=== PATIENT | female | born 1965 | race Caucasian/White ===

== ENCOUNTER → 2020-05-30 | Outpatient (CLI) | payer OTHER ==
--- NOTE | 2020-05-30 09:23 | Diagnostic Imaging Report ---
EXAM: Right upper quadrant abdominal ultrasound INDICATION: Right upper quadrant pain COMPARISON: None. TECHNIQUE: Transverse and longitudinal images of the right upper quadrant abdomen were obtained FINDINGS: Liver: Size: 14.8 cm in the right midclavicular line, normal Appearance: Increased echogenicity, smooth contour Mass: No focal masses Gallbladder: No gallbladder distension, pericholecystic fluid, wall thickening, stone, or reported sonographic Hunter's sign. Gallbladder wall measures 2 mm. Bile Ducts: Intrahepatic Ducts: No dilatation Extrahepatic Ducts: Common bile duct measures 3 mm Pancreas: Visualized portions of the pancreatic head, neck and proximal body are normal. Kidney: The right kidney measures 11.2 cm without evidence of hydronephrosis or stone. Vessels: Aorta: Visualized portions are normal Inferior Vena Cava: Visualized portions are normal Main Portal Vein: 1.1 cm, normal size with hepatopetal flow. Free Fluid: No ascites or pleural effusion IMPRESSION: No cholelithiasis or sonographic evidence of cholecystitis. Hepatic steatosis. Signed by: Estefany Alcantar MD on 05/30/2020 9:20 AM
--- NOTE | 2020-05-30 17:16 | Diagnostic Imaging Report ---
Hepatobiliary Scan with Gallbladder Ejection Fraction Reason for exam: RUQ pain Technique: Following intravenous administration of 6.6 millicuries of Tc-[id number] mebrofenin, dynamic images of the abdomen in the anterior projection were obtained through 30 minutes. Sincalide (CCK analog) 2.0 micrograms was administered intravenously over 30 minutes with additional imaging for determination of gallbladder ejection fraction. Discussion: Perfusion of the liver is normal. Extraction of tracer by the liver parenchyma is normal. Tracer appears promptly within the biliary tract. The gallbladder begins to fill by 10 minutes post injection of tracer and fills adequately. Tracer is seen in the small bowel during the sincalide infusion. The gallbladder ejection fraction with sincalide is 9% (normal greater than 40%). Impression: 1. Filling of the gallbladder excludes acute cystic duct obstruction/acute cholecystitis. 2. The decreased gallbladder ejection fraction of 9% supports the clinical diagnosis of chronic cholecystitis/gallbladder dyskinesia. Signed by: Dr. Aletha Vargas M.D. on 05/30/2020 5:13 PM
== END ==
LOC: US 08:17
PROVIDERS: ATTEND Internal Medicine Gastroenterology
DX: R10.11 Right upper quadrant pain (principal)
CPT/HCPCS: 76705; 78227; A9537

== ENCOUNTER → 2020-06-30 | Day surgery (SDC) | payer OTHER ==
[2020-06-27 09:08] LABS: BASOPHILS % 0.6 % (0.0-1.0); EOSINOPHILS # (AUTO) 0.1 (0.0-0.4); EOSINOPHILS % 2.3 % (0.0-6.0); HEMATOCRIT 39.5 % (34.2-44.1); HEMOGLOBIN 12.4 g/dL (12.0-16.0); LYMPHOCYTES % 37.1 % (18.0-39.1); MEAN CORPUSCULAR HGB CONC 31.4 g/dL (31-35); MEAN CORPUSCULAR VOLUME 92.5 fL (81-99); MONOCYTES # (AUTO) 0.4 (0.2-0.8); MONOCYTES % 6.8 % (4.4-11.3); NEUTROPHILS # (AUTO) 2.8 (2.1-6.9); PLATELET COUNT 187 x10e3/uL (140-360); RED BLOOD COUNT 4.27 x10e6/uL (3.6-5.1); RED CELL DISTRIBUTION WIDTH 13.1 % (11.7-14.4)
[2020-06-27 09:28] LABS: ALANINE AMINOTRANSFERASE 14 IU/L (0-55); ALBUMIN 3.9 g/dL (3.5-5.0); ALBUMIN/GLOBULIN RATIO 1.2 (0.8-2.0); ALKALINE PHOSPHATASE 57 IU/L (40-150); ANION GAP 13.4 mmol/L (8-16); BLOOD UREA NITROGEN 9 mg/dL (7-26); BUN/CREATININE RATIO 12 (6-25); CALCIUM 9.1 mg/dL (8.4-10.2); CARBON DIOXIDE 27 mmol/L (22-29); CHLORIDE 107 mmol/L (98-107); CREATININE, SERUM 0.75 mg/dL (0.57-1.11); EST GLOMERULAR FILTRATION RATE > 60 ML/MIN (60-); GLUCOSE 83 mg/dL (74-118); POTASSIUM 4.4 mmol/L (3.5-5.1); SODIUM 143 mmol/L (136-145)
[~2020-06-30] MED LIST: BUPIVACAINE 0.25% 30ML SDV INJ ONE; DEXAMETHASONE SOD PHOS INJ 4 MG/ML VIAL ONE; FENTANYL CITRATE/PF 100MCG/2 ML INJ ONE; GLYCOPYRROLATE INJ 0.2 MG/ML VIAL ONE; HYDROCODONE/APAP 7.5MG-325MG 1 EA TAB ONE; HYDROMORPHONE 1MG/1ML INJ ONE; KETOROLAC TROMETHAMINE 30 MG/ML VIAL ONE; LIDOCAINE HCL 2% LOCAL INJ 5 ML SDV VIAL INJ ONE; METOCLOPRAMIDE HCL 10 MG/2ML VIAL ONE; MIDAZOLAM HCL 2 MG/2 ML VIAL ONE; MONTELUKAST SOD10 MG PO; NEOSTIGMINE 1 MG/ML 10ML VIAL ONE; ONDANSETRON HCL INJ 2MG/ML 2ML 2 MG/ML VIAL ONE; PROPOFOL IV EMULSION 10 MG/ML 20 ML VIAL ONE; ROCURONIUM BROMIDE 10 MG/ML 5ML VIAL IV ONE; SEVOFLURANE INHAL SOLN 250 ML PEN BTL ONE; SYNTHROID100 MCG PO
[2020-06-30 11:45] VITALS: BP 100/69
== END | disposition home or self-care (01) ==
LOC: OR 06:39
PROVIDERS: ATTEND Surgery
DX: K82.4 Cholesterolosis of gallbladder (principal); K81.1 Chronic cholecystitis; K82.8 Other specified diseases of gallbladder; K66.0 Peritoneal adhesions (postprocedural) (postinfection); E03.9 Hypothyroidism, unspecified; G47.33 Obstructive sleep apnea (adult) (pediatric); Z01.810 Encounter for preprocedural cardiovascular examination; Z01.812 Encounter for preprocedural laboratory examination; Z11.59 Encounter for screening for other viral diseases
CPT/HCPCS: 36415; 47562; 80053; 85025; 88304; 93005; C1766; J1100; J1170; J1885; J2001; J2250; J2405; J2704; J2710; J2765; J3010; U0002

== ENCOUNTER → 2021-07-30 | Day surgery (SDC) | payer OTHER ==
[2021-07-28 15:41] LABS: BASOPHILS % 0.6 % (0.0-1.0); EOSINOPHILS # (AUTO) 0.2 (0.0-0.4); EOSINOPHILS % 3.7 % (0.0-6.0); HEMATOCRIT 38.5 % (34.2-44.1); LYMPHOCYTES # (AUTO) 2.6 (1.0-3.2); LYMPHOCYTES % 41.9 % (18.0-39.1); MEAN CORPUSCULAR HEMOGLOBIN 28.7 pg (28-32); MEAN CORPUSCULAR HGB CONC 31.2 g/dL (31-35); MEAN CORPUSCULAR VOLUME 92.1 fL (81-99); MONOCYTES # (AUTO) 0.4 (0.2-0.8); MONOCYTES % 6.6 % (4.4-11.3); NEUTROPHILS # (AUTO) 2.9 (2.1-6.9); PLATELET COUNT 220 x10e3/uL (140-360); RED BLOOD COUNT 4.18 x10e6/uL (3.6-5.1); RED CELL DISTRIBUTION WIDTH 13.2 % (11.7-14.4)
[~2021-07-30] MED LIST changes: -BUPIVACAINE 0.25% 30ML SDV INJ ONE; -DEXAMETHASONE SOD PHOS INJ 4 MG/ML VIAL ONE; +GLUCAGON FOR INJ 1 MG VIAL ONE; -GLYCOPYRROLATE INJ 0.2 MG/ML VIAL ONE; -HYDROCODONE/APAP 7.5MG-325MG 1 EA TAB ONE; -HYDROMORPHONE 1MG/1ML INJ ONE; +HYOSCYAMINE SULFATE 0.5 MG/ML INJ ONE; -KETOROLAC TROMETHAMINE 30 MG/ML VIAL ONE; +MELOXICAM7.5 MG PO; -NEOSTIGMINE 1 MG/ML 10ML VIAL ONE; -ONDANSETRON HCL INJ 2MG/ML 2ML 2 MG/ML VIAL ONE; -ROCURONIUM BROMIDE 10 MG/ML 5ML VIAL IV ONE; -SEVOFLURANE INHAL SOLN 250 ML PEN BTL ONE; +VITAMIN D PO; +ZYRTEC10 MG PO
[2021-07-30 10:20] VITALS: BP 131/90
[2021-07-30 11:23] LABS: WBC,FECAL (FECAL LACTOFERRIN) NEGATIVE (NEGATIVE)
[2021-07-31 14:02] LABS: C DIFFICILE TOXIN A&B AMP PROB **POSITIVE** (NEGATIVE)
== END | disposition home or self-care (01) ==
LOC: OR 07:11
PROVIDERS: ATTEND Internal Medicine Gastroenterology
DX: K52.9 Noninfective gastroenteritis and colitis, unspecified (principal); D12.5 Benign neoplasm of sigmoid colon; K29.50 Unspecified chronic gastritis without bleeding; K29.60 Other gastritis without bleeding; K21.9 Gastro-esophageal reflux disease without esophagitis; K22.89 Other specified disease of esophagus; K57.30 Diverticulosis of large intestine without perforation or abscess without bleeding; K44.9 Diaphragmatic hernia without obstruction or gangrene; K62.89 Other specified diseases of anus and rectum; K64.8 Other hemorrhoids; D72.820 Lymphocytosis (symptomatic); G47.33 Obstructive sleep apnea (adult) (pediatric); C49.9 Malignant neoplasm of connective and soft tissue, unspecified; E03.9 Hypothyroidism, unspecified; M54.2 Cervicalgia; M19.90 Unspecified osteoarthritis, unspecified site; Z01.810 Encounter for preprocedural cardiovascular examination; Z01.812 Encounter for preprocedural laboratory examination; Z79.899 Other long term (current) drug therapy; Z68.35 Body mass index [BMI] 35.0-35.9, adult; Z80.0 Family history of malignant neoplasm of digestive organs
CPT/HCPCS: 36415 ×2; 43239; 45380; 45384; 45385; 83630; 83993; 85025; 85651; 86141; 86256; 86671; 87045; 87177; 87328; 87493; 93005; C9113; J1610; J1980; J2001; J2250; J2704; J2765; J3010; 45378